=== PATIENT | female | born 1970 | race American Indian/Alaskan Native ===

== ENCOUNTER 2021-08-27 14:30 | Emergency (ER) | payer MEDICARE ==
[2021-08-27] MEDS ORDERED: TETANUS,DIPH,PERTUSS(ACELL) VACCINE 0.5 ML SYRINGE IM ONE (15:19)
--- NOTE | 2021-08-27 15:20 | Emergency Department Report ---
- General Chief complaint: Skin/Abscess/Foreign Body Stated complaint: EVALUATION TREATMENT LT HAND Time Seen by Provider: 08/27/21 15:19 Source: patient Mode of arrival: Ambulatory Limitations: No Limitations - History of Present Illness Initial comments: 51 YO COMES TO ER FROM PCP WITH GROWTH ON HER HAND THIS IS A NODULAR GROWTH ON PALM OF HAND NOT ACUTE NOT ABSCESS SHE SAW PCP AND THE PT WAS TOLD TO SEE DERM SO SHE CAME TO ER. GLADIS EDUCATED HER ON DERM AND NEED FOR BIOSPY AND REMOVAL complaint: other -: Gradual Tetanus Up to Date: no Severity: moderate Worsens with: none Context: none Associated symptoms: denies other symptoms Treatments Prior to Arrival: none - Related Data Allergies Allergy/AdvReac Type Severity Reaction Status Date / Time No Known Allergies Allergy Verified 08/27/21 15:08 Abscess Boil HPI - HPI Chief Complaint: Skin/Abscess/Foreign Body Stated Complaint: EVALUATION TREATMENT LT HAND Time Seen by Provider: 08/27/21 15:19 Allergies/Adverse Reactions: Allergies Allergy/AdvReac Type Severity Reaction Status Date / Time No Known Allergies Allergy Verified 08/27/21 15:08 ED Review of Systems ROS: Stated complaint: EVALUATION TREATMENT LT HAND Other details as noted in HPI Comment: All other systems reviewed and negative ED Past Medical Hx - Past Medical History Previous Medical History?: No - Surgical History Past Surgical History?: No - Family History Family history: no significant - Social History Smoking Status: Never Smoker Substance Use Type: None ED Physical Exam - General Limitations: No Limitations General appearance: alert, in no apparent distress - Head Head exam: Present: atraumatic, normocephalic - Eye Eye exam: Present: normal appearance - ENT ENT exam: Present: mucous membranes moist - Neck Neck exam: Present: normal inspection - Respiratory Respiratory exam: Present: normal lung sounds bilaterally. Absent: respiratory distress - Cardiovascular Cardiovascular Exam: Present: regular rate, normal rhythm. Absent: systolic murmur, diastolic murmur, rubs, gallop - GI/Abdominal GI/Abdominal exam: Present: soft, normal bowel sounds - Extremities Exam Extremities exam: Present: normal inspection - Back Exam Back exam: Present: normal inspection - Neurological Exam Neurological exam: Present: alert, oriented X3 - Psychiatric Psychiatric exam: Present: normal affect, normal mood - Skin Skin exam: Present: warm, dry, intact, normal color, other. Absent: rash ED Medical Decision Making - Medical Decision Making SEE HPI WOUND CARE TDAP GIVEN EDUCATED ON DERM FOLLOW UP DC HOME WITH DC INSTRUCTIONS SHE VERBALIZES UNDERSTANDING VS NORMAL DOCUMENTED BY RN - Differential Diagnosis ABN TISSUE GROWTH ON HAND Critical care attestation.: If time is entered above; I have spent that time in minutes in the direct care of this critically ill patient, excluding procedure time. ED Disposition Clinical Impression: Other disorders of bone development and growth, unspecified hand Disposition: 01 HOME / SELF CARE / HOMELESS Is pt being admited?: No Does the pt Need Aspirin: No Condition: Stable Additional Instructions: no ointment to hand keep wound clean and covered follow up with derm MD who will remove and biopsy hand tdap given today Referrals: SVETLANA JOLLEY MD [Staff Physician] - 3-5 Days Time of Disposition: 15:20
== END 2021-08-27 16:24 | disposition home or self-care (01) ==
LOC: ED 14:30
DX: R22.32 Localized swelling, mass and lump, left upper limb (principal); M89.2 Other disorders of bone development and growth
CPT/HCPCS: 99282